=== PATIENT | male | born 1995 | race Caucasian/White ===

== ENCOUNTER 2018-05-10 20:58 | Emergency (ER) | payer OTHER ==
[2018-05-10 21:17] VITALS: BP 116/67
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
[2018-05-10] MEDS ORDERED: Ibuprofen TAB* 600 MG PO ONE (21:53)
--- NOTE | 2018-05-11 13:11 | ED ---
Progress - Progress Note Progress Note: Final xray report reviewed from the radiologist. NAD. Course/Dx - Course Course Of Treatment: rt rib xrays & PA - I do not appreciate any fractures hwoever there is no offical read by radiology until AM. Pt is aware that this is not an official report and must await radiology evaluation. Regardless, he should not RTP until cleared by Dr Jimenez. - Diagnoses Provider Diagnoses: Contusion of rib on right side Discharge - Sign-Out/Discharge Documenting (check all that apply): Patient Departure All imaging exams completed and their final reports reviewed: Yes - Discharge Plan Condition: Stable Disposition: HOME Patient Education Materials: Rib Contusion (ED) Referrals: Sukh Jimenez MD [Medical Doctor] - 3 Days No Primary Care Phys,NOPCP [Primary Care Provider] - Additional Instructions: I reviewed the xray images myself and do not appreciate an fractures. However, I am not a trained radiologist and this is not an official evaluation. In addition, we discussed that it can take up to 2 weeks for a fracture to show on an xray. I do not recommend that you play until you are cleared by Dr Jimenez. His information is written above. Please call us in the morning for the official report once the radiologist evaluates the images. -You can use ibuprofen 600mgs every 8 hrs for a few days. Ice and rest are very important. - Billing Disposition and Condition Condition: STABLE Disposition: Home
== END 2018-05-10 22:04 | disposition home or self-care (01) ==
LOC: UCCORT 20:58
DX: S20.211A Contusion of right front wall of thorax, initial encounter (principal); W03.XXXA Other fall on same level due to collision with another person, initial encounter; Y93.65 Activity, lacrosse and field hockey; Y92.9 Unspecified place or not applicable
CPT/HCPCS: 99202; A9270-GY; G0463